=== PATIENT | female | born 2000 | race Caucasian/White ===

== ENCOUNTER 2022-03-07 02:10 | Day surgery (SDC) | payer OTHER ==
[2022-03-07 02:37] VITALS: BMI 28.4
[2022-03-07] MEDS ORDERED: hydrALAZINE 20 MG/ML VIAL SLOW IVP PRN (03:16)
[2022-03-07] MEDS ORDERED: Mag-Al 1200 mg/1200 mg/30 ML UDCUP PO PRN (03:27)
[2022-03-07 04:10] LABS: #Basophils 0.1 10x3/uL (0.0-0.2); #Eosinphils 0.1 10x3/uL (0.0-0.5); #Monocytes 0.7 10x3/uL (0.0-1.1); #Neutrophils 9.7 10x3/uL (1.5-8.4); %Basophils 0.4 % (0.0-2.0); %Eosinophils 0.9 % (0.0-6.0); %Lymphocytes 18.4 % (18.0-47.0); %Monocytes 5.6 % (0.0-10.0); %Neutrophils 74.4 % (40.0-75.0); Hemoglobin 11.2 g/dL (12.0-15.5); Mean Corpuscular HGB CONC 35.1 g/dL (32.0-36.0); Mean Corpuscular Hemoglobin 30.9 pg (27.0-33.0); Mean Corpuscular Volume 88.1 fl (81.6-98.3); Platelet Count 251 10x3/uL (150-450); RBC Distribution Width 11.8 % (11.5-14.5); Red Blood Cell (RBC) Count 3.62 10x6/uL (3.90-5.03)
[2022-03-07] MEDS ORDERED: Lactated Ringer's 1,000 ML IV SCH (04:45)
[2022-03-07 04:53] LABS: ALT (SGPT) 6 U/L (8-55); AST (SGOT) 12 U/L (5-34); Albumin 3.5 g/dL (3.5-5.0); Alkaline Phosphatase 79 U/L (40-100); Anion Gap 12 mmol/L (10-20); BUN (Urea Nitrogen) 4 mg/dL (7.0-18.7); Bilirubin, Total 0.2 mg/dL (0.2-1.2); Calc. Creatinine Clearance 180 mL/min (70-130); Calcium 8.8 mg/dL (7.8-10.44); Carbon Dioxide 22 mmol/L (22-29); Chloride 105 mmol/L (98-107); Estimated GFR 130; Globulin 2.9 g/dL (2.4-3.5); Glucose 91 mg/dL (70-105); Protein, Total 6.4 g/dL (6.0-8.3); Sodium 135 mmol/L (136-145)
[2022-03-07 07:09] LABS: Bilirubin Neg (Negative); Blood, Urine Negative (Negative); Clarity Clear (Clear); Glucose, Urine (Dipstick) Normal (Negative); Ketone, Urine Negative (Negative); Leukocyte Negative (Negative); Nitrite Negative (Negative); Protein, Urine (Dipstick) Negative (Neg-Trace); Urobilinogen Normal mg/dL (Less than 2)
[2022-03-07 07:20] LABS: Urine Culture Reflex No No
[2022-03-07 07:23] LABS: RBC/HPF 0-3 HPF (0-3); Squamous Epithelial 0-3 HPF (0-3); WBC/HPF 0-3 HPF (0-3)
[2022-03-07 07:24] LABS: Bacteria/HPF None Seen HPF (None Seen)
== END 2022-03-07 09:00 | disposition home or self-care (01) ==
LOC: CSHLD/OP 02:10
PROVIDERS: ATTEND Obstetrics & Gynecology
DX: O60.03 Preterm labor without delivery, third trimester (principal); O26.893 Other specified pregnancy related conditions, third trimester; R07.89 Other chest pain; R10.9 Unspecified abdominal pain; O99.613 Diseases of the digestive system complicating pregnancy, third trimester; K21.9 Gastro-esophageal reflux disease without esophagitis; Z3A.30 30 weeks gestation of pregnancy; Z88.8 Allergy status to other drugs, medicaments and biological substances
CPT/HCPCS: 36415; 71045; 76815; 80053; 81001; 84484; 85025; 93005; 93010

== ENCOUNTER 2023-05-25 08:35 | Outpatient (CLI) | payer OTHER | END 2023-05-25 08:36 | disposition home or self-care (01) | LOC: CSHULT 08:35 | PROVIDERS: ATTEND Obstetrics & Gynecology | DX: R10.11 Right upper quadrant pain (principal); K82.8 Other specified diseases of gallbladder; K80.20 Calculus of gallbladder without cholecystitis without obstruction | CPT/HCPCS: 76705 ==

== ENCOUNTER 2023-06-10 10:30 | Emergency (ER) | payer OTHER ==
[2023-06-10] MEDS ORDERED: Ibuprofen 200 MG TAB ONE (11:30)
[2023-06-10 12:22] LABS: SARS-CoV-2 NAA Rapid Test Not Detected (NotDetected)
== END 2023-06-10 13:29 | disposition home or self-care (01) ==
LOC: CSHERS 10:30
DX: J06.9 Acute upper respiratory infection, unspecified (principal)
CPT/HCPCS: 87081; 87430; 99283

== ENCOUNTER 2023-06-25 07:51 | Emergency (ER) | payer OTHER ==
[2023-06-25 08:53] LABS: Bilirubin Neg (Negative); Blood, Urine 10 (Negative); Clarity Clear (Clear); Glucose, Urine (Dipstick) Normal (Negative); Ketone, Urine Negative (Negative); Leukocyte Negative (Negative); Nitrite Negative (Negative); Protein, Urine (Dipstick) Negative (Neg-Trace); Specific Gravity, Urine 1.015 (1.005-1.030); Urobilinogen Normal mg/dL (Less than 2)
[2023-06-25 09:58] LABS: Bacteria/HPF Rare-Few HPF (None Seen); CAUTI Indications for Culture Pelvic or flank pain; RBC/HPF None Seen HPF (0-3); Squamous Epithelial 0-3 HPF (0-3); WBC/HPF None Seen HPF (0-3)
[2023-06-25 09:59] LABS: Urine Culture Reflex No No
[2023-06-25 10:16] LABS: #Basophils 0.1 10x3/uL (0.0-0.2); #Eosinphils 0.2 10x3/uL (0.0-0.5); #Monocytes 0.8 10x3/uL (0.0-1.1); #Neutrophils 8.7 10x3/uL (1.5-8.4); %Basophils 0.5 % (0.0-2.0); %Eosinophils 1.7 % (0.0-6.0); %Lymphocytes 23.1 % (18.0-47.0); %Monocytes 6.1 % (0.0-10.0); %Neutrophils 68.4 % (40.0-75.0); Hematocrit 35.1 % (34.9-44.5); Hemoglobin 12.1 g/dL (12.0-15.5); Mean Corpuscular HGB CONC 34.5 g/dL (32.0-36.0); Mean Corpuscular Hemoglobin 30.9 pg (27.0-33.0); Mean Corpuscular Volume 89.5 fl (81.6-98.3); Mean Platelet Volume 10.9 fl (7.4-10.4); Platelet Count 279 10x3/uL (150-450); RBC Distribution Width 12.3 % (11.5-14.5); Red Blood Cell (RBC) Count 3.92 10x6/uL (3.90-5.03); White Blood Cell (WBC) Count 12.7 10x3/uL (3.5-10.5)
[2023-06-25 10:27] LABS: ALT (SGPT) 9 U/L (8-55); AST (SGOT) 11 U/L (5-34); Albumin 3.9 g/dL (3.5-5.0); Alkaline Phosphatase 61 U/L (40-110); Anion Gap 12 mmol/L (10-20); BUN (Urea Nitrogen) 10 mg/dL (7.0-18.7); Calc. Creatinine Clearance 0 mL/min (70-130); Calcium 8.4 mg/dL (7.8-10.44); Carbon Dioxide 22 mmol/L (22-29); Chloride 106 mmol/L (98-107); Estimated GFR 105; Globulin 2.5 g/dL (2.4-3.5); Glucose 95 mg/dL (70-105); Lipase 14 U/L (8-78); Potassium 4.1 mmol/L (3.5-5.1); Protein, Total 6.4 g/dL (6.0-8.3); Sodium 136 mmol/L (136-145)
[2023-06-25 10:46] LABS: Bilirubin, Total Less than 1.0 mg/dL (0.2-1.2)
== END 2023-06-25 12:45 | disposition home or self-care (01) ==
LOC: CSHERS 07:51
DX: O99.891 Other specified diseases and conditions complicating pregnancy (principal); M54.6 Pain in thoracic spine; O99.351 Diseases of the nervous system complicating pregnancy, first trimester; G43.909 Migraine, unspecified, not intractable, without status migrainosus; Z79.899 Other long term (current) drug therapy; Z3A.01 Less than 8 weeks gestation of pregnancy
CPT/HCPCS: 36415; 76856; 80053; 81001; 83690; 84702; 85025; 85379

== ENCOUNTER 2024-02-06 01:26 | Inpatient (IN) | payer OTHER ==
[2024-02-06 01:51] VITALS: BMI 35.8
[2024-02-06] MEDS ORDERED: hydrALAZINE 20 MG/ML VIAL SLOW IVP PRN ×3 (03:19→22:26)
[2024-02-06] MEDS ORDERED: Carboprost 250 MCG/ML AMP IM PRN (05:26)
[2024-02-06] MEDS ORDERED: Diphenoxylate HCl/Atropine Tablet PO PRN (05:26)
[2024-02-06] MEDS ORDERED: Ondansetron PF 4 MG/2 ML Vial IVP PRN ×2 (05:26→22:26)
[2024-02-06] MEDS ORDERED: Methylergonovine 0.2 MG/ML VIAL IM PRN ×2 (05:26→22:26)
[2024-02-06] MEDS ORDERED: Misoprostol 200 MCG TAB PR PRN (05:26)
[2024-02-06] MEDS ORDERED: Promethazine HCl 25 MG/ML VIAL IM PRN ×2 (05:26→13:44)
[2024-02-06] MEDS ORDERED: Lidocaine 1% (PF) 30 ML VIAL SC PRN (05:26)
[2024-02-06] MEDS ORDERED: Tranexamic Acid 1,000 MG/10 ML VIAL IVP PRN (05:26)
[2024-02-06 05:48] LABS: Hematocrit 35.8 % (34.9-44.5); Hemoglobin 11.8 g/dL (12.0-15.5); Mean Corpuscular Hemoglobin 29.9 pg (27.0-33.0); Mean Corpuscular Volume 90.9 fL (81.6-98.3); Mean Platelet Volume 11.4 fL (7.4-10.4); Platelet Count 233 10x3/uL (150-450); RBC Distribution Width 12.9 % (11.5-14.5); Red Blood Cell (RBC) Count 3.94 10x6/uL (3.90-5.03)
[2024-02-06 06:08] LABS: HBsAg Index 0.24 S/CO (0-0.99); Hep B Surf Ag - L&D Non-Reactive S/CO (NonReactive)
[2024-02-06 06:10] LABS: Syphilis Antibody Nonreactive (Nonreactive); Syphilis Antibody Index 0.05 S/CO (<1.00 Non-Reactive)
[2024-02-06] MEDS: Lactated Ringer's 1,000 ML IV SCH (08:10)
[2024-02-06] MEDS: Oxytocin 30 units/NS 500 ML 500 ML IV SCH ×2 (08:11→22:05)
[2024-02-06] MEDS: fentaNYL/Ropivacaine Epidural 100 ML ONE (13:42)
[2024-02-06] MEDS ORDERED: Naloxone HCl 0.4 mg/ml Vial IVP PRN ×2 (13:44)
[2024-02-06] MEDS ORDERED: ePHEDrine Sulfate 50 MG/10 ML VIAL SLOW IVP PRN (13:44)
[2024-02-06] MEDS ORDERED: Moisturizing Cream (Eucerin) 113 GM JAR TOP PRN (13:44)
[2024-02-06] MEDS ORDERED: diphenhydrAMINE 50 MG/ML VIAL IVP PRN (13:44)
[2024-02-06] MEDS ORDERED: Lactated Ringer's 500 ML IV PRN (13:44)
[2024-02-06] MEDS ORDERED: fentaNYL 2 mcg/Ropivacaine 0.2% Epidural 100 ML CADD EPIDURAL SCH (13:45)
[2024-02-06] MEDS ORDERED: Communication Order-Pharmacy FS SCH (13:45)
[2024-02-06] MEDS: Ondansetron PF 4 MG/2 ML Vial IVP PRN (14:22)
[2024-02-06 21:31] LABS: Analyzer IN Cardio CS NICU; RapidComm Collect By RN; pH (Cord, venous) 7.339 (7.250-7.350)
[2024-02-06 21:33] LABS: Analyzer IN Cardio CS NICU; RapidComm Collect By RN
[2024-02-06] MEDS ORDERED: diphenhydrAMINE 25 MG CAP PO PRN (22:26)
[2024-02-06] MEDS ORDERED: Boostrix 0.5 ML (Tdap) VIAL (>/=7 yrs of age) IM ONE (22:26)
[2024-02-06] MEDS ORDERED: Bisacodyl 10 MG SUPP PR PRN (22:26)
[2024-02-06] MEDS ORDERED: Lanolin Ointment 7 GM TUBE TOP PRN (22:26)
[2024-02-06] MEDS ORDERED: Preparation H Ointment 28 GM TUBE PR PRN (22:26)
[2024-02-06] MEDS ORDERED: Misoprostol 200 MCG TAB VAG PRN (22:26)
[2024-02-06] MEDS ORDERED: Methylergonovine 0.2 MG TAB PO PRN (22:26)
[2024-02-06] MEDS ORDERED: Milk Of Magnesia 30 ML UDCUP PO PRN (22:26)
[2024-02-06] MEDS ORDERED: Oxytocin 30 units/NS 500 ML 500 ML IV SCH (22:30)
[2024-02-06] MEDS: Ibuprofen 800 MG TAB PO SCH (23:39)
[2024-02-07] MEDS: Ibuprofen 800 MG TAB ONE (02:14)
[2024-02-07 07:31] LABS: #Basophils 0.03 10x3/uL (0.0-0.2); #Eosinophils 0.09 10x3/uL (0.0-0.5); #Monocytes 0.95 10x3/uL (0.0-1.1); #Neutrophils 13.04 10x3/uL (1.5-8.4); %Basophils 0.2 % (0.0-2.0); %Eosinophils 0.6 % (0.0-6.0); %Monocytes 5.9 % (0.0-10.0); %Neutrophils 80.9 % (40.0-75.0); Hematocrit 34.4 % (34.9-44.5); Hemoglobin 11.5 g/dL (12.0-15.5); Mean Corpuscular HGB CONC 33.4 g/dL (32.0-36.0); Mean Corpuscular Hemoglobin 30.3 pg (27.0-33.0); Mean Corpuscular Volume 90.8 fL (81.6-98.3); Mean Platelet Volume 10.9 fL (7.4-10.4); Platelet Count 207 10x3/uL (150-450); RBC Distribution Width 12.8 % (11.5-14.5); Red Blood Cell (RBC) Count 3.79 10x6/uL (3.90-5.03); White Blood Cell (WBC) Count 16.1 10x3/uL (3.5-10.5)
[2024-02-07] MEDS: Ferrous Sulfate 325 MG TAB PO SCH (08:11)
[2024-02-07] MEDS: Prenatal Vitamin 1 TAB PO SCH (09:31)
[2024-02-07] MEDS: Docusate 100 MG CAP PO SCH (09:31)
[2024-02-07] MEDS ORDERED: Morphine IR Tab 15 MG TAB PO PRN ×2 (09:32→13:45)
[2024-02-07] MEDS: traMADol HCl 50 MG TAB PO PRN (13:21)
[2024-02-07] MEDS: Benzocaine-Menthol 82.5 ML CAN TOP PRN (17:35)
[2024-02-08 08:18] VITALS: BP 115/61; TEMP 97.6
== END 2024-02-08 13:50 | disposition home or self-care (01) | DRG 768 ==
LOC: CSHLD/OP 01:26 → CSHLD 04:00 → CSHPP 23:57
PROVIDERS: ADMIT Emergency Medicine; ATTEND Emergency Medicine
PROC: 10D07Z6 Extraction of Products of Conception, Vacuum, Via Natural or Artificial Opening (ICD-10-PCS; principal; 2024-02-06)
PROC: 0DQR0ZZ Repair Anal Sphincter, Open Approach (ICD-10-PCS; 2024-02-06)
PROC: 10907ZC Drainage of Amniotic Fluid, Therapeutic from Products of Conception, Via Natural or Artificial Opening (ICD-10-PCS; 2024-02-06)
PROC: 4A033R1 Measurement of Arterial Saturation, Peripheral, Percutaneous Approach (ICD-10-PCS; 2024-02-06)
DX: O24.425 Gestational diabetes mellitus in childbirth, controlled by oral hypoglycemic drugs (principal); Z37.0 Single live birth; O70.20 Third degree perineal laceration during delivery, unspecified; O99.214 Obesity complicating childbirth; E66.9 Obesity, unspecified; O36.63X0 Maternal care for excessive fetal growth, third trimester, not applicable or unspecified; Z79.84 Long term (current) use of oral hypoglycemic drugs; Z90.49 Acquired absence of other specified parts of digestive tract; Z79.899 Other long term (current) drug therapy; Z88.5 Allergy status to narcotic agent; O75.81 Maternal exhaustion complicating labor and delivery; Z3A.38 38 weeks gestation of pregnancy
CPT/HCPCS: 36415; 36416; 51702; 82805; 85025; 85027; 86780; 86850; 86900; 86901; 87340; 99285; J2405; J2590; J7120

== ENCOUNTER 2024-04-06 11:51 | Emergency (ER) | payer OTHER ==
[2024-04-06] MEDS ORDERED: Ibuprofen 200 MG TAB ONE (13:32)
== END 2024-04-06 13:48 | disposition home or self-care (01) ==
LOC: CSHERS 11:51
DX: B34.9 Viral infection, unspecified (principal); F17.290 Nicotine dependence, other tobacco product, uncomplicated
CPT/HCPCS: 87081; 87430; 99283